=== PATIENT | female | born 1960 | race Caucasian/White ===

== ENCOUNTER → 2018-03-20 | Outpatient (CLI) | payer OTHER | LOC: M.RAD 10:51 | DX: Z12.31 Encounter for screening mammogram for malignant neoplasm of breast (principal) ==

== ENCOUNTER → 2019-05-29 | Outpatient (CLI) | payer OTHER | LOC: M.RAD 15:23 | DX: Z12.31 Encounter for screening mammogram for malignant neoplasm of breast (principal) ==

== ENCOUNTER → 2020-08-08 | Outpatient (CLI) | payer OTHER | LOC: M.RAD 10:54 | PROVIDERS: ATTEND Nurse Practitioner Women's Health | DX: Z12.31 Encounter for screening mammogram for malignant neoplasm of breast (principal) ==

== ENCOUNTER → 2021-08-21 | Outpatient (CLI) | payer OTHER | LOC: M.RAD 12:44 | PROVIDERS: ATTEND Obstetrics & Gynecology | DX: Z12.31 Encounter for screening mammogram for malignant neoplasm of breast (principal) ==